=== PATIENT | male | born 1985 ===

== ENCOUNTER 2017-09-02 22:21 | Emergency (ER) | payer SELFPAY ==
[2017-09-02 22:29] VITALS: BP 133/63; PULSE 86; RESP 16; TEMP 98; O2SAT 98
--- NOTE | 2017-09-02 22:43 | ED PDOC ---
HPI: CCC, URI, Sore Throat Time Seen by Provider: 09/02/17 22:24 Chief Complaint (Nursing): Flu-like Symptoms Chief Complaint (Provider): cough History Per: Patient History/Exam Limitations: no limitations Onset/Duration Of Symptoms: Days Additional Complaint(s): 32 yo male with no medical problems presents with cough x 4 days. PT states the first day he had cough, 2 episodes of diarrhea and body pain. Pt states he felt feverish that day but not since. Pt states he continues to have a dry cough. Pt reports chest pain only when coughing. Pt has been taking OTC medications for symptoms. Past Medical History Reviewed: Historical Data, Nursing Documentation, Vital Signs Vital Signs: Last Vital Signs Temp 98.0 F 09/02/17 22:27 Pulse 86 09/02/17 22:27 Resp 16 09/02/17 22:27 BP 133/63 09/02/17 22:27 Pulse Ox 98 09/02/17 22:27 - Medical History PMH: No Chronic Diseases - Surgical History Surgical History: No Surg Hx - Family History Family History: States: Unknown Family Hx - Living Arrangements Living Arrangements: With Family - Social History Current smoker - smoking cessation education provided: No - Home Medications Home Medications: Ambulatory Orders Medication Instructions Recorded Amoxicillin/Potassium Clav 1 tab PO TID #30 tab 02/12/14 [Augmentin 500 mg-125 mg] Neomycin/Polymyxin/Hydrocortis 3 drop OT TID #0 bottle 02/12/14 [Cortisporin Otic Susp] Albuterol 1 puff IH Q4 PRN #1 inh 08/22/14 Azithromycin [Zithromax Z-Al] 250 mg PO DAILY #1 packet 08/22/14 Fluticasone Nasal [Flonase] 1 actuation NS BID #1 bottle 08/22/14 Ranitidine HCl [Zantac 150] 150 mg PO BID #10 tab 03/17/15 Meclizine [Meclizine*] 25 mg PO Q8H PRN #10 tab 04/03/15 Naproxen 375 mg PO Q8 PRN #21 tab 05/03/15 Promethazine HCl/Codeine 10 ml PO Q8H PRN #150 ml 09/02/17 [Prometh-Codein 6.25-10 mg/5 ml] predniSONE [predniSONE Tab] 20 mg PO DAILY #12 tab 09/02/17 - Allergies Allergies/Adverse Reactions: Allergies Allergy/AdvReac Type Severity Reaction Status Date / Time strawberry Allergy RASH Verified 09/02/17 22:30 Review of Systems ROS Statement: Except As Marked, All Systems Reviewed And Found Negative Constitutional: Negative for: Fever, Chills Cardiovascular: Positive for: Chest Pain (Only with cough ) Gastrointestinal: Positive for: Diarrhea (Once 4 days ago ). Negative for: Nausea, Vomiting, Abdominal Pain Physical Exam - Reviewed Nursing Documentation Reviewed: Yes Vital Signs Reviewed: Yes - Physical Exam Appears: Positive for: Well, Non-toxic, No Acute Distress Head Exam: Positive for: ATRAUMATIC, NORMAL INSPECTION, NORMOCEPHALIC Skin: Positive for: Normal Color, Warm, DRY Eye Exam: Positive for: Normal appearance ENT: Positive for: Normal ENT Inspection Neck: Positive for: Normal, Painless ROM Cardiovascular/Chest: Positive for: Regular Rate, Rhythm Respiratory: Positive for: Normal Breath Sounds. Negative for: Accessory Muscle Use Gastrointestinal/Abdominal: Positive for: Normal Exam, Bowel Sounds, Soft Back: Positive for: Normal Inspection Extremity: Positive for: Normal ROM Neurologic/Psych: Positive for: Alert, Oriented - ECG O2 Sat by Pulse Oximetry: 98 Disposition - Clinical Impression Clinical Impression: URI (upper respiratory infection) - Patient ED Disposition Is Patient to be Admitted: No Counseled Patient/Family Regarding: Diagnosis, Need For Followup, Rx Given - Disposition Disposition: Routine/Home Disposition Time: 22:45 Condition: GOOD Prescriptions: predniSONE [predniSONE Tab] 20 mg PO DAILY #12 tab Promethazine HCl/Codeine [Prometh-Codein 6.25-10 mg/5 ml] 10 ml PO Q8H PRN #150 ml PRN Reason: Cough Instructions: Viral Upper Respiratory Infection, Adult (DC)
== END 2017-09-02 23:05 | disposition home or self-care (01) ==
LOC: H.ER 22:21
DX: J06.9 Acute upper respiratory infection, unspecified (principal)

== ENCOUNTER 2018-07-23 18:33 | Emergency (ER) | payer SELFPAY ==
[2018-07-23 18:47] VITALS: RESP 18
--- NOTE | 2018-07-23 20:21 | ED PDOC ---
HPI: Abdomen Time Seen by Provider: 07/23/18 19:02 Chief Complaint (Nursing): Male Genitourinary Chief Complaint (Provider): Male Genitourinary History Per: Patient History/Exam Limitations: no limitations Onset/Duration Of Symptoms: Days (x1 week) Additional Complaint(s): 33 y/o male presents to the ED complaining of left sided chest pain, onset 1 week ago. Patient additionally reports abdominal pain, a burning sensation in his pelvis, and urinating frequently. He has no significant medical history. Past Medical History Reviewed: Historical Data, Nursing Documentation, Vital Signs Vital Signs: Last Vital Signs Temp 98.5 F 07/23/18 18:43 Pulse 88 07/23/18 18:43 Resp 18 07/23/18 18:43 BP 125/79 07/23/18 18:43 Pulse Ox 99 07/23/18 18:43 - Medical History PMH: HTN (no medication) - Surgical History Surgical History: No Surg Hx - Family History Family History: States: Unknown Family Hx - Social History Current smoker - smoking cessation education provided: No Alcohol: None - Home Medications Home Medications: Ambulatory Orders Medication Instructions Recorded Amoxicillin/Potassium Clav 1 tab PO TID #30 tab 02/12/14 [Augmentin 500 mg-125 mg] Neomycin/Polymyxin/Hydrocortis 3 drop OT TID #0 bottle 02/12/14 [Cortisporin Otic Susp] Albuterol 1 puff IH Q4 PRN #1 inh 08/22/14 Azithromycin [Zithromax Z-Al] 250 mg PO DAILY #1 packet 08/22/14 Fluticasone Nasal [Flonase] 1 actuation NS BID #1 bottle 08/22/14 Ranitidine HCl [Zantac 150] 150 mg PO BID #10 tab 03/17/15 Meclizine [Meclizine*] 25 mg PO Q8H PRN #10 tab 04/03/15 Naproxen 375 mg PO Q8 PRN #21 tab 05/03/15 Promethazine HCl/Codeine 10 ml PO Q8H PRN #150 ml 09/02/17 [Prometh-Codein 6.25-10 mg/5 ml] predniSONE [predniSONE Tab] 20 mg PO DAILY #12 tab 09/02/17 - Allergies Allergies/Adverse Reactions: Allergies Allergy/AdvReac Type Severity Reaction Status Date / Time strawberry Allergy RASH Verified 09/02/17 22:30 Review of Systems ROS Statement: Except As Marked, All Systems Reviewed And Found Negative Cardiovascular: Positive for: Chest Pain Gastrointestinal: Positive for: Abdominal Pain, Other (Pelvis pain) Genitourinary Male: Positive for: Frequency Physical Exam - Reviewed Nursing Documentation Reviewed: Yes Vital Signs Reviewed: Yes - Physical Exam Appears: Positive for: No Acute Distress Head Exam: Positive for: ATRAUMATIC, NORMAL INSPECTION, NORMOCEPHALIC Skin: Positive for: Normal Color, Warm, DRY Eye Exam: Positive for: EOMI, Normal appearance, PERRL Neck: Positive for: Normal, Painless ROM Cardiovascular/Chest: Negative for: Chest Non Tender (tenderness to palpation left mid sternum) Gastrointestinal/Abdominal: Positive for: Tenderness (RLQ). Negative for: Guarding, Rebound - Laboratory Results Result Diagrams: 07/23/18 20:10 07/23/18 20:10 - ECG O2 Sat by Pulse Oximetry: 99 (RA) Pulse Ox Interpretation: Normal - Radiology X-Ray: Interpreted by Me X-Ray Interpretation: No Acute Disease Medical Decision Making Medical Decision Making: Time: 19:53 Initial Impression: multisystem problems Initial Plan: CT Abd Pelvis EKG CMP Lipase Troponin CBC w/ diff PTT Prothrombin CXR UA 22:00 Patient care endorsed to Dr. Gandara pending CT Abdomen and pelvis. Scribe Attestation: Documented by Jorje Leavitt acting as a scribe for Sylvia Mcdonough MD. Provider Scribe Attestation: All medical record entries made by the Scribe were at my direction and personally dictated by me. I have reviewed the chart and agree that the record accurately reflects my personal performance of the history, physical exam, medical decision making, and the department course for this patient. I have also personally directed, reviewed, and agree with the discharge instructions and disposition. Disposition - Disposition Forms: [facility] (Amharic)
[2018-07-23 20:59] LABS: BASO # 0.1 K/uL (0.0-0.2); BASO % 0.7 % (0.0-2.0); EOS # 0.1 K/uL (0.0-0.7); EOS % 1.4 % (0.0-4.0); HEMOGLOBIN 15.3 g/dL (12.0-18.0); LYMPH # 2.4 K/uL (1.0-4.3); LYMPH % 28.9 % (20.0-40.0); MEAN CELL VOLUME 91.4 fl (80.0-94.0); MEAN CORPUSCULAR HEMOGLOBIN 30.4 pg (27.0-31.0); MEAN CORPUSCULAR HGB CONC 33.2 g/dL (33.0-37.0); MEAN PLATELET VOLUME 9.1 fl (7.2-11.7); MONO # 0.5 K/uL (0.0-0.8); MONO % 6.4 % (0.0-10.0); NEUT # 5.2 K/uL (1.8-7.0); NEUT % 62.6 % (50.0-75.0); NRBC % 0.1 % (0.0-0.0); RBC 5.05 Mil/uL (4.40-5.90); RED CELL DISTRIBUTION WIDTH 12.6 % (11.5-14.5); WHITE BLOOD COUNT 8.4 K/uL (4.8-10.8)
[2018-07-23] MEDS ORDERED: Iohexol 300 100 ML IJ ONE (21:18)
[2018-07-23] MEDS ORDERED: Sodium Chloride 0.9% 50 ML IV ONE (21:18)
[2018-07-23 21:21] LABS: ALB/GLOB RATIO 1.3 (1.0-2.1); ALBUMIN 4.4 g/dL (3.5-5.0); ALT/SGPT 30 U/L (21-72); AST/SGOT 28 U/L (17-59); BLOOD UREA NITROGEN 20 mg/dl (9-20); CALCIUM 9.3 mg/dL (8.4-10.2); GFR NON-AFRICAN AMERICAN > 60; LIPASE 221 U/L (23-300)
[2018-07-23 21:22] LABS: URINE BILIRUBIN NEGATIVE (NEGATIVE); URINE BLOOD SMALL (NEGATIVE); URINE CLARITY CLEAR (Clear); URINE COLOR YELLOW (YELLOW); URINE GLUCOSE (UA) NEG (NEGATIVE); URINE LEUKOCYTE ESTERASE NEG Leu/uL (Negative); URINE PROTEIN NEGATIVE (NEGATIVE); URINE UROBILINOGEN 0.2-1.0 mg/dL (0.2-1.0)
[2018-07-23 21:24] LABS: INR 0.9
[2018-07-23 21:27] LABS: PARTIAL THROMBOPLASTIN TIME 30.5 Seconds (25.6-37.1)
[2018-07-23 21:37] LABS: PROTHROMBIN TIME 9.9 Seconds (9.8-13.1)
--- NOTE | 2018-07-23 22:59 | ED PDOC ---
- Laboratory Results Result Diagrams: 07/23/18 20:10 07/23/18 20:10 Lab Results: PT 9.9 Seconds (9.8-13.1) 07/23/18 20:10 INR 0.9 07/23/18 20:10 APTT 30.5 Seconds (25.6-37.1) 07/23/18 20:10 Troponin I < 0.0120 ng/mL (0.00-0.120) 07/23/18 20:10 Total Bilirubin 0.2 mg/dl (0.2-1.3) 07/23/18 20:10 AST 28 U/L (17-59) 07/23/18 20:10 ALT 30 U/L (21-72) 07/23/18 20:10 Alkaline Phosphatase 65 U/L (38-126) 07/23/18 20:10 Total Protein 7.9 G/DL (6.3-8.2) 07/23/18 20:10 Albumin 4.4 g/dL (3.5-5.0) 07/23/18 20:10 Globulin 3.4 gm/dL (2.2-3.9) 07/23/18 20:10 Albumin/Globulin Ratio 1.3 (1.0-2.1) 07/23/18 20:10 Lipase 221 U/L (23-300) 07/23/18 20:10 Urine Color Yellow (YELLOW) 07/23/18 20:10 Urine Clarity Clear (Clear) 07/23/18 20:10 Urine pH 6.0 (5.0-8.0) 07/23/18 20:10 Ur Specific [place] 1.014 (1.003-1.030) 07/23/18 20:10 Urine Protein Negative mg/dL (NEGATIVE) 07/23/18 20:10 Urine Glucose (UA) Neg mg/dL (NEGATIVE) 07/23/18 20:10 Urine Ketones Negative mg/dL (NEGATIVE) 07/23/18 20:10 Urine Blood Small (NEGATIVE) 07/23/18 20:10 Urine Nitrate Negative (NEGATIVE) 07/23/18 20:10 Urine Bilirubin Negative (NEGATIVE) 07/23/18 20:10 Urine Urobilinogen 0.2-1.0 mg/dL (0.2-1.0) 07/23/18 20:10 Ur Leukocyte Esterase Neg Dwayne/uL (Negative) 07/23/18 20:10 Urine RBC (Auto) 4 /hpf (0-3) H 07/23/18 20:10 Urine Microscopic WBC < 1 /hpf (0-5) 07/23/18 20:10 - ECG O2 Sat by Pulse Oximetry: 99 (RA) Pulse Ox Interpretation: Normal Medical Decision Making Medical Decision Making: Time: 22:00 Patient care endorsed from Dr. Mcdonough to provider pending CT Abdomen and Pelvis. 22:26 CT Abd Pelvis FINDINGS: LUNG BASES: The lung bases appear clear. No pleural effusions are seen. LIVER: Unremarkable. GALLBLADDER AND BILE DUCTS: The gallbladder appears within normal limits. No radioopaque gallstones are seen. No biliary ductal dilatation is evident. PANCREAS: Unremarkable. SPLEEN: Unremarkable. ADRENAL GLANDS: Unremarkable. KIDNEYS, URETERS, AND BLADDER: The kidneys appear within normal limits. There is no hydronephrosis or hydroureter. No urinary calculi are seen. STOMACH AND BOWEL: Thick walled fluid filled duodenum and loops of jejunum compatible with enteritis. Infectious and inflammatory etiologies are considered. APPENDIX: No evidence of acute appendicitis on CT examination. PERITONEUM: No free fluid. No free air. LYMPH NODES: No lymphadenopathy is evident. REPRODUCTIVE: Unremarkable as visualized. VASCULATURE: No evidence of abdominal aortic aneurysm. BONES: No aggressive appearing osseous lesion. No acute osseous pathology evident. IMPRESSION: Normal appendix. Enteritis. Infectious and inflammatory etiologies are considered. Consider consultation with GI service. 23:15 Patient tolerated PO. She is aware of blood in urine and CT results showing ente ritis. Follow up with clinic. Scribe Attestation: Documented by Jorje Leavitt acting as a scribe for Tyler Gandara MD. Provider Scribe Attestation: All medical record entries made by the Scribe were at my direction and personally dictated by me. I have reviewed the chart and agree that the record accurately reflects my personal performance of the history, physical exam, medical decision making, and the department course for this patient. I have also personally directed, reviewed, and agree with the discharge instructions and disposition. Disposition - Clinical Impression Clinical Impression: Hematuria, Enteritis - POA Present On Arrival: None - Disposition Referrals: [facility] [Outside] [facility] [Outside] Brody Guillen Jr., MD [Staff Provider] - Disposition Time: 23:17 Condition: IMPROVED Additional Instructions: follow up in the clinic in 3 days for reevaluation drink plenty of water, advance diet slowly return to the ED with any worsening or concerning symptoms Instructions: Viral Gastroenteritis, Blood in the Urine (Hematuria), Adult (DC) Forms: [employer] (Polish)
[2018-07-23 23:30] VITALS: BP 146/95; PULSE 80; TEMP 98.2; O2SAT 97
--- NOTE | 2018-07-24 09:48 | CT ---
Date of service: 07/23/2018 PROCEDURE: CT Abdomen and Pelvis with contrast HISTORY: RLQ pain COMPARISON: None. TECHNIQUE: Contrast dose: 95 mL of Omnipaque 300. Axial and reformatted coronal and sagittal CT images of the abdomen and pelvis were obtained after IV contrast administration. Radiation dose: Total exam DLP = 834.33 mGy-cm. This CT exam was performed using one or more of the following dose reduction techniques: Automated exposure control, adjustment of the mA and/or kV according to patient size, and/or use of iterative reconstruction technique. FINDINGS: LOWER THORAX: Unremarkable. LIVER: The liver is mildly enlarged. GALLBLADDER AND BILE DUCTS: Unremarkable. PANCREAS: Unremarkable. No gross lesion or ductal dilatation. SPLEEN: Unremarkable. ADRENALS: Unremarkable. No mass. KIDNEYS AND URETERS: Unremarkable. No hydronephrosis. No solid mass. VASCULATURE: Unremarkable. No aortic aneurysm. No aortic atherosclerotic calcification or mural plaque present. BOWEL: There is slightly dilated small bowel loops demonstrate mild diffuse wall thickening. Findings suspicious for enteritis. No evidence of high-grade bowel obstruction. No definite CT evidence of colitis. APPENDIX: Normal appendix. PERITONEUM: Unremarkable. No free fluid. No free air. LYMPH NODES: Unremarkable. No enlarged lymph nodes. BLADDER: Unremarkable. REPRODUCTIVE: Unremarkable. BONES: No acute fracture. OTHER FINDINGS: None. IMPRESSION: No evidence of acute appendicitis. Findings suspicious for mild enteritis. Preliminary report contains concordant findings was submitted by [facility] Radiology.
--- NOTE | 2018-07-24 10:06 | CARD ---
APPROVED REPORT Date of service: 07/23/2018 EKG Measurement Heart [id number] <Conclusion> Normal sinus rhythm Normal ECG
--- NOTE | 2018-07-24 12:56 | RAD ---
Date of service: 07/23/2018 HISTORY: Chest discomfort, chest pain COMPARISON: 08/22/2014. TECHNIQUE: Chest PA and lateral FINDINGS: LUNGS: No active pulmonary disease. PLEURA: No significant pleural effusion identified. No pneumothorax apparent. CARDIOVASCULAR: No aortic atherosclerotic calcification present. Normal cardiac size. No pulmonary vascular congestion. OSSEOUS STRUCTURES: No significant abnormalities. VISUALIZED UPPER ABDOMEN: Normal. OTHER FINDINGS: None. IMPRESSION: No active disease. No significant interval change compared to the prior examination(s).
== END 2018-07-23 23:35 | disposition home or self-care (01) ==
LOC: H.ER 18:33
DX: R31.9 Hematuria, unspecified (principal); K52.9 Noninfective gastroenteritis and colitis, unspecified; R07.89 Other chest pain
CPT/HCPCS: 71046; 74177; 80053; 81003; 82948; 83690; 84484; 85025; 85610; 85730; 93005; 99285; Q9967

== ENCOUNTER 2018-08-05 10:11 | Emergency (ER) | payer OTHER ==
[2018-08-05 12:20] LABS: URINE BILIRUBIN NEGATIVE (NEGATIVE); URINE BLOOD SMALL (NEGATIVE); URINE CLARITY CLEAR (Clear); URINE COLOR STRAW (YELLOW); URINE GLUCOSE (UA) NEG (NEGATIVE); URINE LEUKOCYTE ESTERASE NEG Leu/uL (Negative); URINE PROTEIN NEGATIVE (NEGATIVE); URINE UROBILINOGEN 0.2-1.0 mg/dL (0.2-1.0)
[2018-08-05 12:33] LABS: BARBITURATES, UR NEGATIVE (NEGATIVE); BENZODIAZEPINES, UR NEGATIVE (NEGATIVE); OPIATES, UR NEGATIVE (NEGATIVE); PHENCYCLIDINE, UR NEGATIVE (NEGATIVE)
--- NOTE | 2018-08-05 13:33 | ED PDOC ---
HPI: General Adult Time Seen by Provider: 08/05/18 10:55 Chief Complaint (Nursing): Male Genitourinary Chief Complaint (Provider): Frequent urination and anxiety History Per: Patient History/Exam Limitations: no limitations Onset/Duration Of Symptoms: Days Current Symptoms Are (Timing): Still Present Additional Complaint(s): 33 year old male with history of anxiety presents to the ED for an evaluation for frequent urination. Patient feels anxious and worried he has urine infection or STD. Otherwise, he denies fever, back pain, abdominal pain, chest pain, depression or SI/HI. PMD: No family provider Past Medical History Reviewed: Historical Data, Nursing Documentation, Vital Signs Vital Signs: Last Vital Signs Temp 97.5 F L 08/05/18 10:16 Pulse 90 08/05/18 10:16 Resp 19 08/05/18 10:16 BP 151/85 H 08/05/18 10:16 Pulse Ox 99 08/05/18 10:16 - Medical History PMH: Anxiety (not on meds.), HTN (no medication) - Family History Family History: States: Unknown Family Hx - Home Medications Home Medications: Ambulatory Orders Medication Instructions Recorded Amoxicillin/Potassium Clav 1 tab PO TID #30 tab 02/12/14 [Augmentin 500 mg-125 mg] Neomycin/Polymyxin/Hydrocortis 3 drop OT TID #0 bottle 02/12/14 [Cortisporin Otic Susp] Albuterol 1 puff IH Q4 PRN #1 inh 08/22/14 Azithromycin [Zithromax Z-Al] 250 mg PO DAILY #1 packet 08/22/14 Fluticasone Nasal [Flonase] 1 actuation NS BID #1 bottle 08/22/14 Ranitidine HCl [Zantac 150] 150 mg PO BID #10 tab 03/17/15 Meclizine [Meclizine*] 25 mg PO Q8H PRN #10 tab 04/03/15 Naproxen 375 mg PO Q8 PRN #21 tab 05/03/15 Promethazine HCl/Codeine 10 ml PO Q8H PRN #150 ml 09/02/17 [Prometh-Codein 6.25-10 mg/5 ml] predniSONE [predniSONE Tab] 20 mg PO DAILY #12 tab 09/02/17 - Allergies Allergies/Adverse Reactions: Allergies Allergy/AdvReac Type Severity Reaction Status Date / Time strawberry Allergy RASH Verified 09/02/17 22:30 Review of Systems ROS Statement: Except As Marked, All Systems Reviewed And Found Negative Constitutional: Negative for: Fever Cardiovascular: Negative for: Chest Pain Genitourinary Male: Positive for: Frequency Musculoskeletal: Negative for: Back Pain Psych: Positive for: Anxiety. Negative for: Depression, Suicidal ideation, Other (homicidal ideation ) Physical Exam - Reviewed Nursing Documentation Reviewed: Yes Vital Signs Reviewed: Yes - Physical Exam Appears: Positive for: Non-toxic, No Acute Distress Head Exam: Positive for: ATRAUMATIC, NORMAL INSPECTION, NORMOCEPHALIC Skin: Positive for: Normal Color, Warm, Dry. Negative for: Rash Eye Exam: Positive for: Normal appearance, EOMI ENT: Positive for: Normal ENT Inspection Neck: Positive for: Normal, Painless ROM, Supple. Negative for: Decreased ROM Cardiovascular/Chest: Positive for: Regular Rate, Rhythm Neurologic/Psych: Positive for: Alert, Oriented (x3). Negative for: Motor/Sensory Deficits - Laboratory Results Lab Results: Urine Color Straw (YELLOW) 08/05/18 12:13 Urine Clarity Clear (Clear) 08/05/18 12:13 Urine pH 6.0 (5.0-8.0) 08/05/18 12:13 Ur Specific [place] 1.013 (1.003-1.030) 08/05/18 12:13 Urine Protein Negative mg/dL (NEGATIVE) 08/05/18 12:13 Urine Glucose (UA) Neg mg/dL (NEGATIVE) 08/05/18 12:13 Urine Ketones Negative mg/dL (NEGATIVE) 08/05/18 12:13 Urine Blood Small (NEGATIVE) 08/05/18 12:13 Urine Nitrate Negative (NEGATIVE) 08/05/18 12:13 Urine Bilirubin Negative (NEGATIVE) 08/05/18 12:13 Urine Urobilinogen 0.2-1.0 mg/dL (0.2-1.0) 08/05/18 12:13 Ur Leukocyte Esterase Neg Dwayne/uL (Negative) 08/05/18 12:13 Urine RBC (Auto) 1 /hpf (0-3) 08/05/18 12:13 Urine Microscopic WBC < 1 /hpf (0-5) 08/05/18 12:13 - ECG ECG Rhythm: Positive for: Normal QRS, Normal ST Segment, Sinus Rhythm Rate: 85 O2 Sat by Pulse Oximetry: 99 (RA) Pulse Ox Interpretation: Normal Medical Decision Making Medical Decision Making: Time: 1126 Impression: palpitation, frequent urination, no SI/HI Differential Diagnosis: anxiety and less likely UTI Plan: EKG Drug screen, urine Chlamydia/GC RNA, TMA Glucose, POC Accucheck UA Reevaluation EK bpm, normal sinus rhythm, no ST changes, normal QRS Scribe Attestation: Documented by Tasha Black, acting as a scribe for Marcy Page MD. Provider Scribe Attestation: All medical record entries made by the Scribe were at my direction and personally dictated by me. I have reviewed the chart and agree that the record accurately reflects my personal performance of the history, physical exam, medical decision making, and the department course for this patient. I have also personally directed, reviewed, and agree with the discharge instructions and disposition. Disposition - Clinical Impression Clinical Impression: Anxiety - Patient ED Disposition Is Patient to be Admitted: No Doctor Will See Patient In The: Office Counseled Patient/Family Regarding: Studies Performed, Diagnosis, Need For Followup - Disposition Referrals: [facility] [Outside] Disposition: Routine/Home Disposition Time: 13:54 Condition: GOOD Additional Instructions: [employer], thank you for letting us take care of you today. Your provider was Marcy Page MD and you were treated for POSS ANXIETY. The emergency medical care you received today was directed at your acute symptoms. If you were prescribed any medication, please fill it and take as directed. It may take several days for your symptoms to resolve. Return to the Emergency Department if your symptoms worsen, do not improve, or if you have any other problems. Please contact your doctor or call one of the physicians/clinics you have been referred to that are listed on the Patient Visit Information form that is included in your discharge packet. Bring any paperwork you were given at discharge with you along with any medications you are taking to your follow up visit. Our treatment cannot replace ongoing medical care by a primary care provider outside of the emergency department. Thank you for allowing the [facility] team to be part of your care today. If you had an X-Ray or CT scan: A Radiologist will review the ED reading if any change in treatment is needed we will contact you. If you had a blood, urine, or wound culture: It will take several days for the results, if any change in treatment is needed we will contact you. If you had an STI test: It will take 48 hours for the results. Please call after 1 week if you have not heard back. Instructions: Anxiety, Adult (DC)
[2018-08-05 14:07] VITALS: RESP 20; TEMP 98.1
[2018-08-05 14:08] VITALS: BP 135/82
[2018-08-05 15:50] VITALS: PULSE 85; O2SAT 99
--- NOTE | 2018-08-06 16:58 | CARD ---
APPROVED REPORT Date of service: 08/05/2018 EKG Measurement Heart [id number] <Conclusion> Normal sinus rhythm Normal ECG
== END 2018-08-05 14:05 | disposition home or self-care (01) ==
LOC: SUPCPDRO 10:11 → H.ER 10:11
DX: F41.9 Anxiety disorder, unspecified (principal); R35.0 Frequency of micturition